=== PATIENT | male | born 1985 | race Two or more races ===

== ENCOUNTER 2017-02-22 09:32 | Emergency (ER) | payer SELFPAY ==
[~2017-02-22] VITALS: Ht 172.7 cm; Wt 74.8 kg
[2017-02-22] MEDS ORDERED: HYDROcodone-ACET 5/325MG TAB PO ONE (12:15)
[2017-02-22] MEDS ORDERED: SILVER SULFADIAZINE 1 % TOPICAL CREAM 50GM TOP ONE (12:30)
[2017-02-22] MEDS ORDERED: BACITRACIN TOP OINT 1 UD PKG TOP ONE ×2 (12:39→14:15)
[2017-02-22 13:15] VITALS: BP 135/75
== END 2017-02-22 14:58 | disposition home or self-care (01) ==
LOC: ER 09:32
DX: T20.00XA Burn of unspecified degree of head, face, and neck, unspecified site, initial encounter (principal); T22.251A Burn of second degree of right shoulder, initial encounter; T20.20XA Burn of second degree of head, face, and neck, unspecified site, initial encounter; T20.211A Burn of second degree of right ear [any part, except ear drum], initial encounter; X12.XXXA Contact with other hot fluids, initial encounter; Y93.89 Activity, other specified; Y99.8 Other external cause status; Y92.89 Other specified places as the place of occurrence of the external cause
CPT/HCPCS: 16020

== ENCOUNTER 2022-02-08 17:55 | Emergency (ER) | payer OTHER ==
[~2022-02-08] VITALS: Ht 185.4 cm; Wt 127.0 kg
[2022-02-09 01:28] LABS: Basophils # (auto) 0 10 ^3/uL (0-0.2); Basophils % (auto) 0.3 % (0.0-2.0); Eosinophils # (auto) 0 10 ^3/uL (0-0.8); Eosinophils % (auto) 0.3 % (0.0-7.0); Hematocrit 45.8 % (41.0-53.0); Hemoglobin 15.6 g/dL (13.5-17.5); Lymphocytes # (auto) 1.4 10 ^3/uL (0.4-5.4); Lymphocytes % (auto) 12.9 % (10.0-50.0); Mean Corpuscular Hemoglobin 29.1 pg (28.0-32.0); Mean Corpuscular Volume 85.5 fL (80.0-100.0); Monocytes % (auto) 9.9 % (0.0-12.0); Neutrophils % (auto) 76.6 % (37.0-80.0); Nucleated Red Blood Cells % 0.1 %; Red Blood Cells 5.36 10^6/uL (4.5-5.90); Red Cell Distribution Width 14.3 % (11.8-14.3); White Blood Cell 10.5 10^3/uL (4.4-10.8)
[2022-02-09 01:30] LABS: Calcium 8.7 mg/dL (8.5-10.1); Potassium 3.5 mmol/L (3.5-5.1)
[2022-02-09 01:35] LABS: BUN/Creatinine Ratio 18.2; Total Protein 8.1 g/dL (6.4-8.2)
[2022-02-09 02:16] LABS: Albumin 2.9 g/dL (3.4-5.0)
[2022-02-09] MEDS ORDERED: CEFD300C2 PO (06:08)
[2022-02-09] MEDS ORDERED: cefTRIAXone SOD 1,000 MG VL IM ONE (06:15)
[2022-02-09 08:47] VITALS: BP 137/71
== END 2022-02-09 08:49 ==
LOC: EEVIPCON 17:55 → ER 17:55
DX: M79.662 Pain in left lower leg (principal)
CPT/HCPCS: 36415; 80053; 85025; 93971; 96372; 99284; J0696